=== PATIENT | male | born 1985 | race Two or more races ===

== ENCOUNTER 2018-02-10 13:45 | Emergency (ER) | payer OTHER ==
[~2018-02-10] VITALS: Ht 175.3 cm; Wt 90.7 kg
[2018-02-10 14:02] VITALS: BP 180/80
[2018-02-10] MEDS ORDERED: SILVER SULFADIAZINE 1 % TOPICAL CREAM 50GM TOP ONE (14:30)
[2018-02-10] MEDS ORDERED: TETANUS-DIPTH-ACEL PERTUSSIS 0.5ML SYRG IM ONE (14:45)
== END 2018-02-10 15:02 | disposition home or self-care (01) ==
LOC: ER 13:45 → EDUNIT# 13:45 → EDBD 13:45 → ER 15:02
DX: T23.201A Burn of second degree of right hand, unspecified site, initial encounter (principal); X10.2XXA Contact with fats and cooking oils, initial encounter; Y93.89 Activity, other specified; Y92.89 Other specified places as the place of occurrence of the external cause; Y99.8 Other external cause status
CPT/HCPCS: 16020; 90471; 90715

== ENCOUNTER 2025-05-06 19:50 | Emergency (ER) | payer MEDICAID, OTHER ==
[~2025-05-06] VITALS: Ht 175.3 cm; Wt 89.8 kg
[2025-05-07] MEDS ORDERED: PROB500T9 PO (03:07)
[2025-05-07] MEDS ORDERED: COLC1CAP PO (03:07)
[2025-05-07] MEDS ORDERED: INDO50CA82 PO (03:07)
--- NOTE | 2025-05-07 03:15 | ED.PDOC ---
Musculoskeletal HPI Comments 39-year-old male who came to ER for right leg pain. Patient has history of gout, has around out of colchicine for the past 2 days. For the past few hours patient has been complaining of right knee pain and swelling, he has like he is having a gout flare-up Chief Complaint: Lower Extremity Time Seen by MD: 03:15 Primary Care Provider: WORK ,COMP Reviewed Notes: Nurses Notes Allergies: Coded Allergies: NO KNOWN ALLERGIES (Unverified , 02/26/16) Home Meds Active Scripts Probenecid (Benemid) 500 Mg Tb, 500 MG PO BID PRN, #60 TAB 3 Refills Prov:NITIN ASHLEY MD 05/07/25 Indomethacin (Indomethacin) 50 Mg Cap, 1 CAP PO TID PRN, #30 CAP 1 Refill Prov:NITIN ASHLEY MD 05/07/25 Colchicine (Colchicine) 0.6 Mg Cap, 0.6 MG PO [id number] PRN, #60 CAP 3 Refills Prov:NITIN ASHLEY MD 05/07/25 Information Source: Patient Mode of Arrival: Ambulatory Location: Right Extremity Location: Knee Past Medical History PAST MEDICAL HISTORY: Gout Family History Family History: Reviewed,noncontributory to illness Social History Smoker: Cigarettes Alcohol: Denies ETOH Use Drugs: Denies Drug Use Lives In: Home Constitutional: denies: chills, diaphoresis, fatigue, fever, malaise, sweats, weakness, others EENTM: denies: blurred vision, double vision, ear bleeding, ear discharge, ear drainage, ear pain, ear ringing, eye pain, eye redness, hearing loss, mouth pain, mouth swelling, nasal discharge, nose bleeding, nose congestion, nose pain, photophobia, tearing, throat pain, throat swelling, voice changes, others Respiratory: denies: cough, hemoptysis, orthopnea, SOB at rest, shortness of breath, SOB with excertion, stridor, wheezing, others Cardiovascular: denies: chest pain, dizzy spells, diaphoresis, Dyspnea on exertion, edema, irregular heart beat, left arm pain, lightheadedness, palpitations, PND, syncope, others Gastrointestinal: denies: abdomen distended, abdominal pain, blood streaked bowels, constipated, diarrhea, dysphagia, difficulty swallowing, hematemesis, melena, nausea, poor appetite, poor fluid intake, rectal bleeding, rectal pain, vomiting, others Genitourinary: denies: burning, dysuria, flank pain, frequency, hematuria, incontinence, penile discharge, penile sore, pain, testicle pain, testicle swelling, urgency, others Neurological: denies: dizziness, fainting, headache, left sided numbness, left sided weakness, numbness, paresthesia, pre-existing deficit, right sided numbness, right sided weakness, seizure, speech problems, tingling, tremors, weakness, others Musculoskeletal: reports: joint pain (Right knee); denies: back pain, gout, joint swelling, muscle pain, muscle stiffness, neck pain, others Integumetry: denies: bruises, change in color, change in hair/nails, dryness, laceration, lesions, lumps, rash, wounds, others Allergic/Immunocompromised: denies: Difficulty Healing, Frequent Infections, Hives, Itching, others Hematologic/Lymphatic: denies: anemia, blood clots, easy bleeding, easy bruis ing, swollen glands, others Endocrine: denies: excessive hunger, excessive sweating, excessive thirst, exc essive urination, flushing, intolerance to cold, intolerance to heat, unexplained weight gain, unexplained weight loss, others Psychiatric: denies: anxiety, bipolar disorder, depression, hopeless, panic disorder, schizophrenia, sleepless, suicidal, others Physical Exam General Appearance: No Apparent Distress, Normal HEENT: Normal ENT Inspection, Pharynx Normal, TMs Normal Neck: Full Range of Motion, Non-Tender, Normal, Normal Inspection Respiratory: Chest Non-Tender, Lungs Clear, No Accessory Muscle Use, No Resp iratory Distress, Normal Breath Sounds Cardiovascular: No Edema, No JVD, No Murmur, No Gallop, Normal Peripheral Pulses, Regular Rate/Rhythm Breast Exam: Deferred Gastrointestinal: No Organomegaly, Non Tender, No Pulsatile Mass, Normal Bowel Sounds, Soft Genitalia: Deferred Pelvic: Deferred Rectal: Deferred Extremities: No calf tenderness, Normal capillary refill, Normal inspection, Normal range of motion, Non-tender, No pedal edema Musculoskeletal : Apperance: Normal Neurologic: Alert, casing runner II-XII nml as Tested, No Motor Deficits, Normal Affect, Normal Mood, No Sensory Deficits Cerebellar Function: Normal Reflexes: Normal Skin: Dry, Normal Color, Warm Lymphatic: No Adenopathy Was a procedure done? Was a procedure done?: No Differential Diagnosis EXT Differential Diagnosis: Cellulitis, Gout, Strain, Arthritis X-Ray, Labs, Meds, VS Vital Signs Date Time Temp Pulse Resp B/P (MAP) Pulse Ox O2 Delivery O2 Flow Rate FiO2 05/07/25 04:11 90 16 100 Room Air 05/07/25 04:11 98.0 90 16 156/91 (112) 100 98.0 05/06/25 19:53 98.1 114 19 155/112 98 98.1 Current Medications Medications (Trade) Dose Ordered Sig/Denys Route Start Time Stop Time Status Last Admin Colchicine (Colcrys) 1.2 mg ONCE ONCE PO 05/07/25 03:15 05/07/25 03:16 DC 05/07/25 04:08 Acetaminophen/ Hydrocodone Bitart ([place] 10/325MG Tab) 1 tab ONCE ONCE PO 05/07/25 03:15 05/07/25 03:16 DC 05/07/25 04:08 Time of 1ST Reevaluation: 03:13 Reevaluation 1ST: Unchanged Patient Education/Counseling: Diagnosis, Treatment Family Education/Counseling: No Family Present Departure 1 Departure Time of Disposition: 05:00 Impression: Primary Impression: Gout of right knee Additional Impression: Gout attack Disposition: 01 HOME / SELF CARE / HOMELESS Condition: Stable Additional Instructions: Follow up with your primary physician Return to the ED for any worsening symptoms or concerns e-Prescriptions Probenecid (Benemid) 500 Mg Tb 500 MG PO BID PRN, #60 TAB 3 Refills Prov: NITIN ASHLEY MD 05/07/25 Indomethacin (Indomethacin) 50 Mg Cap 1 CAP PO TID PRN, #30 CAP 1 Refill Prov: NITIN ASHLEY MD 05/07/25 Colchicine (Colchicine) 0.6 Mg Cap 0.6 MG PO [id number] PRN, #60 CAP 3 Refills Prov: NITIN ASHLEY MD 05/07/25 Discharged With: Self Critical Care Note Critical Care Time?: No Stability Stability form required: No Heart Score Heart Score: Heart Score Response (Comments) Value History N/A 0 EKG N/A 0 Age N/A 0 Risk Factors N/A 0 Troponin N/A 0 Total 0 I personally scribed for NITIN ASHLEY MD ([email or web address]) on 05/07/25 at 03:15. Electronically submitted by John Lopez ([email or web address]). NITIN ASHLEY MD May 07, 2025 03:15
[2025-05-07] MEDS: HYDROcodone-ACET 10/325MG TAB PO ONE (04:08)
[2025-05-07] MEDS: COLCHICINE 0.6 MG CAP PO ONE (04:08)
[2025-05-07 04:11] VITALS: BP 156/91; PULSE 90; RESP 16; TEMP 98; O2SAT 100
== END 2025-05-07 04:46 | disposition home or self-care (01) ==
LOC: ER 19:50
DX: M10.9 Gout, unspecified (principal); F17.210 Nicotine dependence, cigarettes, uncomplicated; Z79.899 Other long term (current) drug therapy